=== PATIENT | male | born 1995 | race Asian ===

== ENCOUNTER 2017-08-24 22:56 | Inpatient (IN) | payer OTHER ==
[2017-08-24 23:47] LABS: HEMATOCRIT 42.5 % (42.0-52.0); HEMOGLOBIN 13.2 g/dl (14.0-18.0); MEAN CORPUSCULAR HEMOGLOBIN 21.3 pg (27.0-33.0); MEAN CORPUSCULAR HGB CONC 31.1 g/dl (32.0-36.5); MEAN CORPUSCULAR VOLUME 68.7 fl (80.0-96.0); PLATELET COUNT, AUTOMATED 248 10^3/uL (150-450); RED BLOOD COUNT 6.19 10^6/uL (4.30-6.10); RED CELL DISTRIBUTION WIDTH 15.8 % (11.5-14.5); WHITE BLOOD COUNT 8.1 10^3/uL (4.0-10.0)
[2017-08-25 00:12] LABS: ACETAMINOPHEN LEVEL < 2.0 UG/ML (10.0-30.0); ALBUMIN 4.4 GM/DL (3.2-5.2); ALBUMIN/GLOBULIN RATIO 1.42 (1.00-1.93); ALKALINE PHOSPHATASE 37 U/L (45-117); ALT/SGPT 19 U/L (12-78); ANION GAP 8 MEQ/L (8-16); AST/SGOT 11 U/L (7-37); BILIRUBIN,DIRECT 0.3 MG/DL (0.0-0.2); BILIRUBIN,TOTAL 1.2 MG/DL (0.2-1.0); BLOOD UREA NITROGEN 10 MG/DL (7-18); CALCIUM LEVEL 8.7 MG/DL (8.5-10.1); CARBON DIOXIDE LEVEL 26 MEQ/L (21-32); CHLORIDE LEVEL 107 MEQ/L (98-107); CREATININE FOR GFR 0.87 MG/DL (0.70-1.30); GLOMERULAR FILTRATION RATE > 60.0 (>60); GLUCOSE, FASTING 94 MG/DL (70-100); POTASSIUM SERUM 3.9 MEQ/L (3.5-5.1); SALICYLATE LEVEL < 1.7 MG/DL (5.0-30.0); SODIUM LEVEL 141 MEQ/L (136-145); TOTAL PROTEIN 7.5 GM/DL (6.4-8.2)
[2017-08-25 00:20] LABS: AMPHETAMINES LEVEL URINE NEGATIVE (NEGATIVE); BARBITURATES URINE NEGATIVE (NEGATIVE); BENZODIAZEPINES URINE NEGATIVE (NEGATIVE); CANNABINOIDS URINE POSITIVE (NEGATIVE); COCAINE METABOLITE URINE NEGATIVE (NEGATIVE); METHADONE URINE NEGATIVE (NEGATIVE); OPIATES URINE NEGATIVE (NEGATIVE); PHENCYCLIDINE URINE NEGATIVE (NEGATIVE)
[2017-08-25 00:22] LABS: ETHYL ALCOHOL (ETHANOL) < 0.003 % (0.000-0.010)
[2017-08-25] MEDS ORDERED: MOM 30ML SUSPENSION UDC PO (01:00)
[2017-08-25] MEDS ORDERED: MAALOX 30 ML SUSP *UDC PO (01:00)
[2017-08-25] MEDS: NICOTINE 21MG/24HR 1 EA TRANSDERMAL TD (11:38)
[2017-08-25] MEDS: FLUoxetine 10 MG CAP PO (17:14)
[2017-08-25] MEDS: ACETAMINOPHEN TAB 650MG DOSE (2X325MG) PO (19:11)
[2017-08-26] MEDS: FLUoxetine 10 MG CAP PO (08:16)
[2017-08-26] MEDS: ACETAMINOPHEN TAB 650MG DOSE (2X325MG) PO (08:16)
[2017-08-26] MEDS: NICOTINE 21MG/24HR 1 EA TRANSDERMAL TD (08:16)
[2017-08-26 09:09] LABS: ALBUMIN 4.2 GM/DL (3.2-5.2); ALBUMIN/GLOBULIN RATIO 1.35 (1.00-1.93); ALKALINE PHOSPHATASE 37 U/L (45-117); ALT/SGPT 21 U/L (12-78); AST/SGOT 10 U/L (7-37); BILIRUBIN,DIRECT 0.3 MG/DL (0.0-0.2); BILIRUBIN,TOTAL 1.1 MG/DL (0.2-1.0); TOTAL PROTEIN 7.3 GM/DL (6.4-8.2)
[2017-08-26] MEDS: IBUPROFEN 600 MG TAB PO (12:23)
[2017-08-26] MEDS: traZODone 50 MG TAB PO (21:05)
[2017-08-27] MEDS: FLUoxetine 10 MG CAP PO (08:15)
[2017-08-27] MEDS: ACETAMINOPHEN TAB 650MG DOSE (2X325MG) PO (08:17)
[2017-08-27] MEDS: NICOTINE 21MG/24HR 1 EA TRANSDERMAL TD (08:19)
== END 2017-08-27 11:30 | disposition home or self-care (01) | DRG 881 ==
LOC: M ED INP 08-25 00:56 → M ED 22:56 → M PSY 08-25 01:17
DX: F32.9 Major depressive disorder, single episode, unspecified (principal); R45.851 Suicidal ideations; Z79.899 Other long term (current) drug therapy; F17.210 Nicotine dependence, cigarettes, uncomplicated

== ENCOUNTER 2017-08-28 12:30 | Inpatient (IN) | payer OTHER ==
[2017-08-28 13:06] LABS: HEMATOCRIT 45.1 % (42.0-52.0); HEMOGLOBIN 13.9 g/dl (14.0-18.0); MEAN CORPUSCULAR HEMOGLOBIN 21.2 pg (27.0-33.0); MEAN CORPUSCULAR HGB CONC 30.8 g/dl (32.0-36.5); MEAN CORPUSCULAR VOLUME 68.9 fl (80.0-96.0); PLATELET COUNT, AUTOMATED 277 10^3/uL (150-450); RED BLOOD COUNT 6.55 10^6/uL (4.30-6.10); RED CELL DISTRIBUTION WIDTH 17.2 % (11.5-14.5); WHITE BLOOD COUNT 5.5 10^3/uL (4.0-10.0)
[2017-08-28 13:38] LABS: ALBUMIN 4.6 GM/DL (3.2-5.2); ALBUMIN/GLOBULIN RATIO 1.28 (1.00-1.93); ALKALINE PHOSPHATASE 37 U/L (45-117); ALT/SGPT 23 U/L (12-78); ANION GAP 8 MEQ/L (8-16); AST/SGOT 13 U/L (7-37); BILIRUBIN,DIRECT 0.3 MG/DL (0.0-0.2); BILIRUBIN,TOTAL 1.2 MG/DL (0.2-1.0); BLOOD UREA NITROGEN 10 MG/DL (7-18); CARBON DIOXIDE LEVEL 26 MEQ/L (21-32); CHLORIDE LEVEL 107 MEQ/L (98-107); CREATININE FOR GFR 0.88 MG/DL (0.70-1.30); ETHYL ALCOHOL (ETHANOL) < 0.003 % (0.000-0.010); GLOMERULAR FILTRATION RATE > 60.0 (>60); GLUCOSE, FASTING 97 MG/DL (70-100); POTASSIUM SERUM 3.8 MEQ/L (3.5-5.1); SALICYLATE LEVEL < 1.7 MG/DL (5.0-30.0); SODIUM LEVEL 141 MEQ/L (136-145); TOTAL PROTEIN 8.2 GM/DL (6.4-8.2)
[2017-08-28 13:45] LABS: ACETAMINOPHEN LEVEL < 2.0 UG/ML (10.0-30.0)
[2017-08-28 14:29] LABS: AMPHETAMINES LEVEL URINE NEGATIVE (NEGATIVE); BARBITURATES URINE NEGATIVE (NEGATIVE); BENZODIAZEPINES URINE NEGATIVE (NEGATIVE); CANNABINOIDS URINE POSITIVE (NEGATIVE); COCAINE METABOLITE URINE NEGATIVE (NEGATIVE); METHADONE URINE NEGATIVE (NEGATIVE); OPIATES URINE NEGATIVE (NEGATIVE); PHENCYCLIDINE URINE NEGATIVE (NEGATIVE)
[2017-08-28] MEDS ORDERED: MAALOX 30 ML SUSP *UDC PO (14:45)
[2017-08-28] MEDS ORDERED: MOM 30ML SUSPENSION UDC PO (14:45)
[2017-08-28] MEDS: NICOTINE 21MG/24HR 1 EA TRANSDERMAL TD (20:16)
[2017-08-29] MEDS: NICOTINE 21MG/24HR 1 EA TRANSDERMAL TD (08:19)
[2017-08-29] MEDS: FLUoxetine 10 MG CAP PO (08:20)
[2017-08-29] MEDS ORDERED: FLUoxetine 10 MG CAP PO (09:00)
[2017-08-29 14:08] LABS: KETONE, URINE AUTO RFX NEGATIVE (NEGATIVE); LEUKOCYTE ESTERASE UR AUTO RFX NEGATIVE (NEGATIVE); MUCUS, URINE RFX SMALL (NEGATIVE); NITRITE, URINE AUTO RFX NEGATIVE (NEGATIVE); RBC, URINE AUTO RFX 1 /HPF (0-3); SPECIFIC GRAVITY UR AUTO RFX 1.012 (1.002-1.035); SQUAM EPITHELIAL CELL UR AURFX 0 /HPF (0-6); WBC, URINE AUTO RFX 0 /HPF (0-3)
[2017-08-29] MEDS: hydrOXYzine 25 MG TAB PO (21:20)
[2017-08-29] MEDS: ACETAMINOPHEN TAB 650MG DOSE (2X325MG) PO (21:21)
[2017-08-30 07:07] LABS: HEMATOCRIT 44.3 % (42.0-52.0); HEMOGLOBIN 13.5 g/dl (13.5-17.5); MEAN CORPUSCULAR HGB CONC 30.5 g/dl (32.0-36.5); PLATELET COUNT, AUTOMATED 205 10^3/uL (150-450); RED BLOOD COUNT 6.42 10^6/uL (4.30-6.10); RED CELL DISTRIBUTION WIDTH 16.9 % (11.5-14.5); WHITE BLOOD COUNT 6.5 10^3/uL (4.0-10.0)
[2017-08-30 07:36] LABS: ALBUMIN 4.1 GM/DL (3.2-5.2); ALBUMIN/GLOBULIN RATIO 1.24 (1.00-1.93); ALKALINE PHOSPHATASE 35 U/L (45-117); ALT/SGPT 25 U/L (12-78); ANION GAP 5 MEQ/L (8-16); AST/SGOT 12 U/L (7-37); BILIRUBIN,TOTAL 0.8 MG/DL (0.2-1.0); BLOOD UREA NITROGEN 13 MG/DL (7-18); CARBON DIOXIDE LEVEL 29 MEQ/L (21-32); CHLORIDE LEVEL 109 MEQ/L (98-107); CREATININE FOR GFR 0.96 MG/DL (0.70-1.30); FERRITIN 109 NG/ML (26-388); GLOMERULAR FILTRATION RATE > 60.0 (>60); GLUCOSE, FASTING 83 MG/DL (70-100); IRON (FE) 119 UG/DL (65-175); PERCENT SATURATION 34.1 % (19.7-50.0); POTASSIUM SERUM 4.7 MEQ/L (3.5-5.1); SODIUM LEVEL 143 MEQ/L (136-145); TOTAL IRON BINDING CAPACITY 349 UG/DL (250-450); TOTAL PROTEIN 7.4 GM/DL (6.4-8.2)
[2017-08-30] MEDS: FLUoxetine 10 MG CAP PO (08:27)
[2017-08-30] MEDS: NICOTINE 21MG/24HR 1 EA TRANSDERMAL TD (08:27)
[2017-08-30] MEDS: ACETAMINOPHEN TAB 650MG DOSE (2X325MG) PO ×2 (08:29→22:11)
[2017-08-30 09:55] LABS: VITAMIN B12 LEVEL 743 PG/ML (247-911)
[2017-08-30 09:56] LABS: FOLATE 10.2 NG/ML (>5.4)
[2017-08-30] MEDS: hydrOXYzine 25 MG TAB PO (20:17)
[2017-08-30] MEDS: traZODone 50 MG TAB PO (22:10)
[2017-08-31] MEDS: NICOTINE 21MG/24HR 1 EA TRANSDERMAL TD (08:51)
[2017-08-31] MEDS: hydrOXYzine 25 MG TAB PO ×2 (08:51→21:04)
[2017-08-31] MEDS: FLUoxetine 10 MG CAP PO (08:51)
[2017-08-31] MEDS: traZODone 50 MG TAB PO (21:04)
[2017-09-01] MEDS: hydrOXYzine 25 MG TAB PO ×2 (08:55→19:57)
[2017-09-01] MEDS: FLUoxetine 10 MG CAP PO (08:56)
[2017-09-01] MEDS: NICOTINE 21MG/24HR 1 EA TRANSDERMAL TD (09:10)
[2017-09-01] MEDS: traZODone 50 MG TAB PO (21:22)
[2017-09-02] MEDS: FLUoxetine 10 MG CAP PO (08:16)
[2017-09-02] MEDS: NICOTINE 21MG/24HR 1 EA TRANSDERMAL TD (08:16)
[2017-09-02] MEDS: hydrOXYzine 25 MG TAB PO ×3 (08:17→22:05)
[2017-09-02] MEDS: ACETAMINOPHEN TAB 650MG DOSE (2X325MG) PO ×2 (08:23→22:05)
[2017-09-02] MEDS: MIRTAZAPINE 7.5MG PER 1/2 TABLET PO (21:06)
[2017-09-03] MEDS: hydrOXYzine 25 MG TAB PO (10:13)
[2017-09-03] MEDS: FLUoxetine 10 MG CAP PO (10:13)
[2017-09-03] MEDS: NICOTINE 21MG/24HR 1 EA TRANSDERMAL TD (10:13)
[2017-09-03] MEDS: IBUPROFEN 600 MG TAB PO (11:40)
[2017-09-03] MEDS: ACETAMINOPHEN TAB 650MG DOSE (2X325MG) PO (11:41)
== END 2017-09-03 13:42 | disposition home or self-care (01) | DRG 885 ==
LOC: M ED 12:30 → M ED INP 14:40 → M PSY 16:06
DX: F33.2 Major depressive disorder, recurrent severe without psychotic features (principal); R45.851 Suicidal ideations; F51.05 Insomnia due to other mental disorder; D64.9 Anemia, unspecified; F17.210 Nicotine dependence, cigarettes, uncomplicated; R07.81 Pleurodynia; Z79.899 Other long term (current) drug therapy